=== PATIENT | male | born 1980 | race African-American/Black ===

== ENCOUNTER 2020-08-11 20:00 | Emergency (ER) | payer SELFPAY ==
[~2020-08-11] VITALS: Ht 175.3 cm; Wt 90.7 kg
--- NOTE | 2020-08-11 20:24 | NUR ---
PT CAME TO THE ED C/O INTERMITTENT CHEST PAIN AND PALPITATIONS X 7 WEEKS. PAIN WORSE UPON MOVEMENT. PT AAOX4, VSS, RESPIRATIONS EVEN AND UNLABORED ON RA W/ NAD NOTED. PT CONNECTED TO THE DIAL LATHE OPERATOR AND POX
--- NOTE | 2020-08-11 20:25 | NUR ---
IV LINE ESTABLISHED 18 G RAC. BLOOD COLLECTED AND SENT TO LAB
[2020-08-11 20:45] LABS: BASOPHILS % (AUTO) 0.5 % (0.0-2.0); EOSINOPHILS % (AUTO) 0.7 % (0.0-6.0); HEMATOCRIT 46 % (39-51); HEMOGLOBIN 15.3 g/dL (13.5-17.5); LYMPHOCYTES # (AUTO) 2.1 /CMM (0.8-4.8); LYMPHOCYTES % (AUTO) 22.3 % (20.0-44.0); MEAN CORPUSCULAR HGB CONC 33 g/dl (31.0-36.0); MEAN CORPUSCULAR VOLUME 94 fL (80-96); MONOCYTES # (AUTO) 0.6 /CMM (0.1-1.30); MONOCYTES % (AUTO) 5.9 % (2.0-12.0); NEUTROPHILS # (AUTO) 6.6 /CMM (1.8-8.9); NEUTROPHILS % (AUTO) 70.6 % (43.0-81.0); PLATELET COUNT (AUTO) 256 /CMM (150-450); RED BLOOD CELL COUNT(AUTO) 4.93 MIL/uL (4.5-6.0); WHITE BLOOD COUNT (AUTO) 9.4 K/uL (4.3-11.0)
[2020-08-11 20:55] LABS: CALCIUM, SERUM 9.1 mg/dL (8.5-10.1); CARBON DIOXIDE 26 mmol/L (21-32); CHLORIDE 100 mmol/L (98-107); CREATININE 1.2 mg/dL (0.6-1.3); GLUCOSE 99 mg/dL (74-106); POTASSIUM 3.4 mmol/L (3.5-5.1); SODIUM SERUM 137 mmol/L (136-145); UREA NITROGEN, BLOOD 13 mg/dL (7-18)
[2020-08-11 21:07] LABS: ALANINE AMINOTRANSFERASE 27 U/L (12-78); ALBUMIN 4.5 g/dL (3.4-5.0); ALKALINE PHOSPHATASE 62 U/L (46-116); ASPARTATE AMINOTRANSFERASE 26 U/L (15-37); BILIRUBIN,TOTAL 0.2 mg/dL (0.2-1.0); TOTAL PROTEIN, SERUM 8.7 g/dL (6.4-8.2)
[2020-08-11] MEDS ORDERED: IV NS 0.9% 250 ML IV ONE (21:07)
[2020-08-11] MEDS ORDERED: IOHEXOL-350 100 ML VIAL IV ONE ×2 (21:07→21:23)
[2020-08-11 21:11] LABS: B-TYPE NATRIURETIC PEPTIDE 5 PG/ML (0-125)
--- NOTE | 2020-08-11 21:29 | NUR ---
PT TAKEN TO RADIOLOGY FOR CT
[2020-08-11] MEDS ORDERED: IV NS 0.9% 1,000 ML BAG IV ONE (21:30)
--- NOTE | 2020-08-11 23:22 | NUR ---
called scarlet, per frank states scan current read by dr. mahmood.
[2020-08-12 00:13] VITALS: BP 151/70
--- NOTE | 2020-08-12 00:13 | NUR ---
Patient discharged to home in stable condition. Written and verbal after care instructions given. Patient verbalizes understanding of instruction.IV removed. Catheter intact and site benign. Pressure and 4x4 applied to site. No bleeding noted.
== END 2020-08-12 00:14 | disposition home or self-care (01) ==
LOC: ER 20:01
DX: R07.89 Other chest pain (principal); R06.02 Shortness of breath; R00.0 Tachycardia, unspecified; J45.909 Unspecified asthma, uncomplicated; Z60.2 Problems related to living alone
CPT/HCPCS: 36415; 71045; 71275; 80048; 80076; 83735; 83880; 84484; 85025; 93005 ×2; 96360; 99285; J7030; J7050; Q9967 ×2